=== PATIENT | male | born 1970 | race American Indian/Alaskan Native ===

== ENCOUNTER 2018-12-28 03:47 | Inpatient (IN) | payer MEDICAID, OTHER ==
[2018-12-28] MEDS ORDERED: Sodium Chloride 0.9% 1,000 ML IV ONE ×3 (03:51→06:49)
--- NOTE | 2018-12-28 04:24 | EDM.PDOC ---
ED HPI GENERAL MEDICAL PROBLEM - General Stated Complaint: HIGH BLOOD SUGAR Time Seen by Provider: 12/28/18 04:10 Source of Information: Reports: Patient, Family History Limitations: Reports: No Limitations - History of Present Illness INITIAL COMMENTS - FREE TEXT/NARRATIVE: This 48 yo male patient was brought to the ED by his due to several episodes of passing out. The patient reports he went to the [employer] at about 0100 today. While he was at the [employer], the patient reports he started to feel very lightheaded. The patient reports he "passed out" seven times before they could get him to the car. The patient reports he is diabetic and his blood sugar was reading "high" before going to the [facility]. The patient reports he had similar symptoms about 2-3 months ago, but his symptoms resolved on their own. The patient denies any drug or ETOH use. The patient reports he has been taking his medications as prescribed. Onset: Today Duration: Constant Location: Reports: Generalized Quality: Reports: Other Severity: Severe Improves with: Reports: None Worsens with: Reports: None Context: Reports: Other Associated Symptoms: Reports: Syncope Treatments MANAGER RENTAL: Reports: Insulin Other Treatments MANAGER RENTAL: Novalog and Lantus - Related Data Allergies Allergy/AdvReac Type Severity Reaction Status Date / Time No Known Allergies Allergy Verified 03/20/13 18:51 Home Meds: Home Meds Aspirin [Halfprin] 81 mg PO DAILY 03/20/13 [History] Insulin Detemir [Levemir] 50 units SQ BIDAC 03/20/13 [History] Lisinopril 10 mg PO DAILY 03/20/13 [History] metFORMIN [Glucophage] 1,000 mg PO BIDMEALS 03/20/13 [History] Simvastatin [Zocor] 10 mg PO DAILY 08/23/15 [History] Past Medical History Cardiovascular History: Reports: High Cholesterol, Hypertension Neurological History: Reports: Other (See Below) Other Neuro History: bells palsy Endocrine/Metabolic History: Reports: Diabetes, Type II - Past Surgical History Musculoskeletal Surgical History: Reports: Other (See Below) Social & Family History - Family History Family Medical History: Noncontributory - Living Situation & Occupation Living situation: Reports: , with Family Occupation: Employed ED ROS GENERAL - Review of Systems Review Of Systems: ROS reveals no pertinent complaints other than HPI. ED EXAM, GENERAL - Physical Exam Exam: See Below Exam Limited By: No Limitations General Appearance: Alert, WD/WN, Moderate Distress Eye Exam: Bilateral Eye: EOMI, Normal Inspection, PERRL Ears: Normal External Exam, Normal Canal, Hearing Grossly Normal, Normal TMs Nose: Normal Inspection, Normal Mucosa, No Blood Throat/Mouth: Normal Inspection, Normal Lips, Normal Teeth, Normal Gums, Normal Oropharynx, Normal Voice, No Airway Compromise Head: Atraumatic, Normocephalic Neck: Normal Inspection, Supple, Non-Tender, Full Range of Motion Respiratory/Chest: No Respiratory Distress, Lungs Clear, Normal Breath Sounds, No Accessory Muscle Use, Chest Non-Tender Cardiovascular: Normal Peripheral Pulses, Regular Rate, Rhythm, Systolic Murmur GI/Abdominal: Normal Bowel Sounds, Soft, Non-Tender, No Organomegaly, No Distention, No Abnormal Bruit, No Mass (Male) Exam: Deferred Rectal (Males) Exam: Deferred Back Exam: Normal Inspection, Full Range of Motion, NT Extremities: Normal Inspection, Normal Range of Motion, Non-Tender, Normal Capillary Refill, No Pedal Edema Neurological: Alert, Oriented, CN II-XII Intact, Normal Cognition, No Motor/ Sensory Deficits, Abnormal Gait (moved to the ED in a wheelchair due to weakness and syncope) Psychiatric: Normal Affect, Normal Mood Skin Exam: Cool, Pallor Lymphatic: No Adenopathy Course - Vital Signs Last Recorded V/S: Last Vital Signs Temp 35.8 C 12/28/18 03:55 Pulse 104 H 12/28/18 03:55 Resp 20 12/28/18 03:55 BP Pulse Ox 89 L 12/28/18 03:55 - Orders/Labs/Meds Orders: Active Orders 24 hr Category Date Time Status Admission Diagnosis [ADT] Stat ADT 12/28/18 06:39 Ordered Admission Status [Patient Status] [ADT] Routine ADT 12/28/18 06:39 Active EKG Documentation Completion [RC] URGENT Care 12/28/18 04:23 Active Glucose [Blood Glucose Check, Bedside] [RC] ONETIME Care 12/28/18 03:51 Active Chest 1V Frontal [CR] Urgent Exams 12/28/18 05:46 Taken Chest Abdomen Pelvis wo Cont [CT] Urgent Exams 12/28/18 06:38 Ordered CULTURE BLOOD [BC] Stat Lab 12/28/18 05:44 Received DRUG SCREEN URINE BIORAD [URCHEM] Stat Lab 12/28/18 03:50 Ordered UA RFX GERMAN AND CULT IF INDIC [URIN] Urgent Lab 12/28/18 03:50 Ordered Piperacillin/Tazobactam [Zosyn] 3.375 gm Med 12/28/18 06:39 Ordered Sodium Chloride 0.9% [Normal Saline] 100 ml IV ONETIME Sodium Chloride 0.9% [Normal Saline] 1,000 ml Med 12/28/18 06:23 Active IV .BOLUS Vancomycin 1.75 gm Med 12/28/18 06:39 Ordered Sodium Chloride 0.9% [Normal Saline] 500 ml IV ONETIME Medication Orders Sodium Chloride (Normal Saline) 1,000 mls @ 999 mls/hr IV .BOLUS ONE Stop: 12/28/18 07:23 Last Admin: 12/28/18 06:30 Dose: 999 mls/hr Piperacillin Sod/Tazobactam (Sod 3.375 gm/ Sodium Chloride) 100 mls @ 200 mls/ hr IV ONETIME ONE Stop: 12/28/18 07:08 Vancomycin HCl 1.75 gm/ Sodium (Chloride) 500 mls @ 334 mls/hr IV ONETIME ONE Stop: 12/28/18 08:08 Labs: Laboratory Tests 12/28/18 12/28/18 12/28/18 Range/Units 05:44 05:44 05:44 WBC 21.7 H (5.0-10.0) 10^3/uL RBC 5.86 (4.6-6.2) 10^6/uL Hgb 17.7 (14.0-18.0) g/dL Hct 48.6 (40.0-54.0) % MCV 82.9 D (80-100) fL MCH 30.2 (27.0-34.0) pg MCHC 36.4 H (33.0-35.0) g/dL Plt Count 457 H (150-450) 10^3/uL Neut % (Auto) 82.0 H (42.2-75.2) % Lymph % (Auto) 10.4 L (20.5-50.1) % Alger % (Auto) 7.3 (2-8) % Eos % (Auto) 0.1 L (1.0-3.0) % Baso % (Auto) 0.2 (0.0-1.0) % Add Manual Diff Yes Neutrophils % (Manual) 78 H (42-75) % Band Neutrophils % 7 % Lymphocytes % (Manual) 10 L (20-50) % Monocytes % (Manual) 5 (2-8) % Sodium (135-145) mmol/L Potassium (3.6-5.0) mmol/L Chloride (101-111) mmol/L Carbon Dioxide (21.0-31.0) mmol/L Anion Gap BUN (7-18) mg/dL Creatinine (0.6-1.3) mg/dL Est Cr Clr Drug Dosing mL/min Estimated GFR (MDRD) BUN/Creatinine Ratio Glucose (74-105) mg/dL Lactic Acid 4.7 H (0.5-2.2) mmol/L Calcium (8.4-10.2) mg/dl Total Bilirubin (0.2-1.0) mg/dL AST (10-42) IU/L ALT (10-60) IU/L Alkaline Phosphatase (42-121) IU/L Troponin I (0.00-0.08) ng/mL Total Protein (6.7-8.2) g/dl Albumin (3.2-5.5) g/dl Globulin Albumin/Globulin Ratio Ketones Negative 12/28/18 12/28/18 Range/Units 05:44 05:44 WBC (5.0-10.0) 10^3/uL RBC (4.6-6.2) 10^6/uL Hgb (14.0-18.0) g/dL Hct (40.0-54.0) % MCV (80-100) fL MCH (27.0-34.0) pg MCHC (33.0-35.0) g/dL Plt Count (150-450) 10^3/uL Neut % (Auto) (42.2-75.2) % Lymph % (Auto) (20.5-50.1) % Alger % (Auto) (2-8) % Eos % (Auto) (1.0-3.0) % Baso % (Auto) (0.0-1.0) % Add Manual Diff Neutrophils % (Manual) (42-75) % Band Neutrophils % % Lymphocytes % (Manual) (20-50) % Monocytes % (Manual) (2-8) % Sodium 129 L (135-145) mmol/L Potassium 3.5 L D (3.6-5.0) mmol/L Chloride 90 L (101-111) mmol/L Carbon Dioxide 20.0 L (21.0-31.0) mmol/L Anion Gap 22.5 BUN 26 H (7-18) mg/dL Creatinine 2.4 H D (0.6-1.3) mg/dL Est Cr Clr Drug Dosing 40.09 mL/min Estimated GFR (MDRD) 29 BUN/Creatinine Ratio 10.83 Glucose 338 H (74-105) mg/dL Lactic Acid (0.5-2.2) mmol/L Calcium 9.8 (8.4-10.2) mg/dl Total Bilirubin 1.0 (0.2-1.0) mg/dL AST 39 (10-42) IU/L ALT 51 (10-60) IU/L Alkaline Phosphatase 168 H (42-121) IU/L Troponin I 0.05 (0.00-0.08) ng/mL Total Protein 8.1 (6.7-8.2) g/dl Albumin 4.1 (3.2-5.5) g/dl Globulin 4.0 Albumin/Globulin Ratio 1.03 Ketones Meds: Medications Generic Name Dose Route Start Last Admin Trade Name Freq PRN Reason Stop Dose Admin Sodium Chloride 1,000 mls @ 999 mls/hr 12/28/18 06:23 12/28/18 06:30 Normal Saline IV 12/28/18 07:23 999 mls/hr .BOLUS ONE Administration Piperacillin Sod/Tazobactam 100 mls @ 200 mls/hr 12/28/18 06:39 Sod 3.375 gm/ Sodium Chloride IV 12/28/18 07:08 ONETIME ONE Vancomycin HCl 1.75 gm/ Sodium 500 mls @ 334 mls/hr 12/28/18 06:39 Chloride IV 12/28/18 08:08 ONETIME ONE Discontinued Medications Generic Name Dose Route Start Last Admin Trade Name Freq PRN Reason Stop Dose Admin Sodium Chloride 1,000 mls @ 999 mls/hr 12/28/18 03:51 12/28/18 06:15 Normal Saline IV 12/28/18 04:51 999 mls/hr .BOLUS ONE Administration - Re-Assessments/Exams Free Text/Narrative Re-Assessment/Exam: 12/28/18 05:58 Surgery (Dr. Bullock) came to the ED to place a central line for blood draw and fluid administration. Departure - Departure Time of Disposition: 06:45 Disposition: Admitted As Inpatient 66 Condition: Serious Clinical Impression: Sepsis Qualifiers: Sepsis type: sepsis due to unspecified organism Sepsis acute organ dysfunction status: with acute organ dysfunction Severe sepsis acute organ dysfunction type : acute renal failure Acute renal failure type: unspecified Severe sepsis shock status: with septic shock Qualified Code(s): A41.9 - Sepsis, unspecified organism; R65.21 - Severe sepsis with septic shock; N17.9 - Acute kidney failure , unspecified - Discharge Information *PRESCRIPTION DRUG MONITORING PROGRAM REVIEWED*: Not Applicable *COPY OF PRESCRIPTION DRUG MONITORING REPORT IN PATIENT DIANA: Not Applicable Care Plan Goals: Discussed the patient's history, examination, lab, EKG and x-ray results with Dr. Dinh. Dr. Dinh accepted the patient for continued evaluation and treatment as an inpatient at [facility]. Prior to admission, the patient was started on IV Vancomycin and IV Zosyn. The patient was also given 2 liters of IV fluids. The patient had a CT of his chest, abdomen and pelvis prior to moving the patient to the floor. - My Orders Last 24 Hours: My Active Orders 12/28/18 03:50 DRUG SCREEN URINE BIORAD [URCHEM] Stat UA RFX GERMAN AND CULT IF INDIC [URIN] Urgent 12/28/18 03:51 Glucose [Blood Glucose Check, Bedside] [RC] ONETIME 12/28/18 04:23 EKG Documentation Completion [RC] URGENT 12/28/18 05:44 CULTURE BLOOD [BC] Stat 12/28/18 05:46 Chest 1V Frontal [CR] Urgent 12/28/18 06:23 Sodium Chloride 0.9% [Normal Saline] 1,000 ml IV .BOLUS 12/28/18 06:38 Chest Abdomen Pelvis wo Cont [CT] Urgent 12/28/18 06:39 Admission Diagnosis [ADT] Stat Admission Status [Patient Status] [ADT] Routine Piperacillin/Tazobactam [Zosyn] 3.375 gm Sodium Chloride 0.9% [Normal Saline] 100 ml IV ONETIME Vancomycin 1.75 gm Sodium Chloride 0.9% [Normal Saline] 500 ml IV ONETIME - Assessment/Plan Last 24 Hours: My Active Orders 12/28/18 03:50 DRUG SCREEN URINE BIORAD [URCHEM] Stat UA RFX GERMAN AND CULT IF INDIC [URIN] Urgent 12/28/18 03:51 Glucose [Blood Glucose Check, Bedside] [RC] ONETIME 12/28/18 04:23 EKG Documentation Completion [RC] URGENT 12/28/18 05:44 CULTURE BLOOD [BC] Stat 12/28/18 05:46 Chest 1V Frontal [CR] Urgent 12/28/18 06:23 Sodium Chloride 0.9% [Normal Saline] 1,000 ml IV .BOLUS 12/28/18 06:38 Chest Abdomen Pelvis wo Cont [CT] Urgent 12/28/18 06:39 Admission Diagnosis [ADT] Stat Admission Status [Patient Status] [ADT] Routine Piperacillin/Tazobactam [Zosyn] 3.375 gm Sodium Chloride 0.9% [Normal Saline] 100 ml IV ONETIME Vancomycin 1.75 gm Sodium Chloride 0.9% [Normal Saline] 500 ml IV ONETIME
[2018-12-28 06:15] LABS: ANION GAP 22.5
[2018-12-28] MEDS ORDERED: Vancomycin 1.75 GM in Sodium Chloride 0.9% 500 ML IV ONE (06:39)
[2018-12-28] MEDS ORDERED: Piperacillin/Tazobactam 3.375 GM in Sodium Chloride 0.9% 100 ML IV ONE (06:39)
--- NOTE | 2018-12-28 08:27 | PCM.HP ---
H&P History of Present Illness - General Date of Service: 12/28/18 Admit Problem/Dx: Admission Diagnosis/Problem Admission Diagnosis/Problem Sepsis Source of Information: Patient History Limitations: Reports: No Limitations - History of Present Illness Initial Comments - Free Text/Narative: 48 yo M with PMH of DM2, obesity, hypertension, HLD who p/w recurrent syncope. History is limited as patient cannot recall events from last night clearly [place]. Friends brought him to the ER cos he was passing out repeatedly, up to 7 times. On arrival in the ER, he was severely dehydrated, hypotensive, tachycardic, peripheral veins could not be cannulated and a central line had to be placed for hydration. He recieved IV fluids and broad spectrum abx. VS improved with IV fluid hydration I saw and examined the patient on the floor He feels much better He has no symptoms at this time. No chest pain, no SOB, no abdominal pain, no urinary symptoms, no fever Admits to hx of IVDU No hx of alcohol intake or cigarette smoking - Related Data Allergies/Adverse Reactions: Allergies Allergy/AdvReac Type Severity Reaction Status Date / Time No Known Allergies Allergy Verified 03/20/13 18:51 Home Medications: Home Meds Aspirin [Halfprin] 81 mg PO DAILY 03/20/13 [History] Insulin Detemir [Levemir] 50 units SQ BIDAC 03/20/13 [History] Lisinopril 10 mg PO DAILY 03/20/13 [History] metFORMIN [Glucophage] 1,000 mg PO BIDMEALS 03/20/13 [History] Simvastatin [Zocor] 10 mg PO DAILY 08/23/15 [History] Past Medical History - Past Health History Medical/Surgical History: Denies Medical/Surgical History HEENT History: Reports: Cataract Cardiovascular History: Reports: High Cholesterol, Hypertension Respiratory History: Reports: None Gastrointestinal History: Reports: None Genitourinary History: Reports: Other (See Below) Other Genitourinary History: Hernia Musculoskeletal History: Reports: Back Pain, Chronic Neurological History: Reports: Other (See Below) Other Neuro History: [place] Endocrine/Metabolic History: Reports: Diabetes, Type II Hematologic History: Reports: None Oncologic (Cancer) History: Reports: None Dermatologic History: Reports: Other (See Below) Other Dermatologic History: Sores to L foot, L stout, and R stout - Infectious Disease History Infectious Disease History: Reports: Chicken Pox - Past Surgical History Head Surgeries/Procedures: Reports: None Social & Family History - Family History Family Medical History: Noncontributory - Tobacco Use Smoking Status *Q: Never Smoker Second Hand Smoke Exposure: Yes - Caffeine Use Caffeine Use: Reports: Coffee, Tea - Recreational Drug Use Recreational Drug Use: Yes Drug Use in Last 12 Months: Yes Recreational Drug Type: Reports: Marijuana/Hashish, Methamphetamine Recreational Drug Use Frequency: Monthly - Living Situation & Occupation Living situation: Reports: , with Family Occupation: Employed H&P Review of Systems - Review of Systems: Review Of Systems: ROS reveals no pertinent complaints other than HPI. General: Reports: No Symptoms HEENT: Reports: No Symptoms Pulmonary: Reports: No Symptoms Cardiovascular: Reports: Syncope Gastrointestinal: Reports: No Symptoms Genitourinary: Reports: No Symptoms Musculoskeletal: Reports: No Symptoms Skin: Reports: No Symptoms Psychiatric: Reports: No Symptoms Neurological: Reports: No Symptoms Exam - Exam Exam: See Below - Vital Signs Vital Signs: Last Vital Signs Temp 35.8 C 12/28/18 03:55 Pulse 94 12/28/18 07:04 Resp 18 12/28/18 07:04 BP 91/58 L 12/28/18 07:04 Pulse Ox 98 12/28/18 07:04 Weight: 99.065 kg - Exam General: Alert, Oriented HEENT: Conjunctiva Clear, EACs Clear, EOMI Neck: Supple, Trachea Midline Lungs: Clear to Auscultation, Normal Respiratory Effort Cardiovascular: Regular Rate, Regular Rhythm GI/Abdominal Exam: Normal Bowel Sounds, Soft, Non-Tender, No Organomegaly, No Distention Extremities: Normal Inspection, Normal Range of Motion, Non-Tender, No Pedal Edema Skin: Other (chronic wounds with scabs on lower and upper ext bilaterally) - Patient Data Lab Results Last 24 hrs: Laboratory Results - last 24 hr 12/28/18 12/28/18 12/28/18 Range/Units 05:44 05:44 05:44 WBC 21.7 H (5.0-10.0) 10^3/uL RBC 5.86 (4.6-6.2) 10^6/uL Hgb 17.7 (14.0-18.0) g/dL Hct 48.6 (40.0-54.0) % MCV 82.9 D (80-100) fL MCH 30.2 (27.0-34.0) pg MCHC 36.4 H (33.0-35.0) g/dL Plt Count 457 H (150-450) 10^3/uL Neut % (Auto) 82.0 H (42.2-75.2) % Lymph % (Auto) 10.4 L (20.5-50.1) % Saline % (Auto) 7.3 (2-8) % Eos % (Auto) 0.1 L (1.0-3.0) % Baso % (Auto) 0.2 (0.0-1.0) % Add Manual Diff Yes Neutrophils % (Manual) 78 H (42-75) % Band Neutrophils % 7 % Lymphocytes % (Manual) 10 L (20-50) % Monocytes % (Manual) 5 (2-8) % Sodium (135-145) mmol/L Potassium (3.6-5.0) mmol/L Chloride (101-111) mmol/L Carbon Dioxide (21.0-31.0) mmol/L Anion Gap BUN (7-18) mg/dL Creatinine (0.6-1.3) mg/dL Est Cr Clr Drug Dosing mL/min Estimated GFR (MDRD) BUN/Creatinine Ratio Glucose (74-105) mg/dL POC Glucose (70-105) mg/dl Lactic Acid 4.7 H (0.5-2.2) mmol/L Calcium (8.4-10.2) mg/dl Total Bilirubin (0.2-1.0) mg/dL AST (10-42) IU/L ALT (10-60) IU/L Alkaline Phosphatase (42-121) IU/L Troponin I (0.00-0.08) ng/mL Total Protein (6.7-8.2) g/dl Albumin (3.2-5.5) g/dl Globulin Albumin/Globulin Ratio Ketones Negative 12/28/18 12/28/18 12/28/18 Range/Units 05:44 05:44 08:16 WBC (5.0-10.0) 10^3/uL RBC (4.6-6.2) 10^6/uL Hgb (14.0-18.0) g/dL Hct (40.0-54.0) % MCV (80-100) fL MCH (27.0-34.0) pg MCHC (33.0-35.0) g/dL Plt Count (150-450) 10^3/uL Neut % (Auto) (42.2-75.2) % Lymph % (Auto) (20.5-50.1) % Saline % (Auto) (2-8) % Eos % (Auto) (1.0-3.0) % Baso % (Auto) (0.0-1.0) % Add Manual Diff Neutrophils % (Manual) (42-75) % Band Neutrophils % % Lymphocytes % (Manual) (20-50) % Monocytes % (Manual) (2-8) % Sodium 129 L (135-145) mmol/L Potassium 3.5 L D (3.6-5.0) mmol/L Chloride 90 L (101-111) mmol/L Carbon Dioxide 20.0 L (21.0-31.0) mmol/L Anion Gap 22.5 BUN 26 H (7-18) mg/dL Creatinine 2.4 H D (0.6-1.3) mg/dL Est Cr Clr Drug Dosing 40.09 mL/min Estimated GFR (MDRD) 29 BUN/Creatinine Ratio 10.83 Glucose 338 H (74-105) mg/dL POC Glucose 263 H (70-105) mg/dl Lactic Acid (0.5-2.2) mmol/L Calcium 9.8 (8.4-10.2) mg/dl Total Bilirubin 1.0 (0.2-1.0) mg/dL AST 39 (10-42) IU/L ALT 51 (10-60) IU/L Alkaline Phosphatase 168 H (42-121) IU/L Troponin I 0.05 (0.00-0.08) ng/mL Total Protein 8.1 (6.7-8.2) g/dl Albumin 4.1 (3.2-5.5) g/dl Globulin 4.0 Albumin/Globulin Ratio 1.03 Ketones Result Diagrams: 12/28/18 05:44 12/28/18 05:44 Problem List Initiated/Reviewed/Updated: Yes Orders Last 24hrs: Active Orders 24 hr Category Date Time Status Admission Diagnosis [ADT] Stat ADT 12/28/18 06:39 Ordered Admission Status [Patient Status] [ADT] Routine ADT 12/28/18 06:39 Active Accu Check [Blood Glucose Check, Bedside] [RC] Care 12/28/18 08:11 Active QIDACANDBED Ambulate [RC] ASDIRECTED Care 12/28/18 08:13 Active EKG Documentation Completion [RC] URGENT Care 12/28/18 04:23 Active Glucose [Blood Glucose Check, Bedside] [RC] ONETIME Care 12/28/18 03:51 Active Height and Weight [RC] DAILY Care 12/28/18 08:13 Active Oxygen Therapy [RC] PRN Care 12/28/18 08:13 Active Up With Assistance [RC] ASDIRECTED Care 12/28/18 08:13 Active VTE/DVT Education [RC] PER UNIT ROUTINE Care 12/28/18 08:13 Active Vital Signs [RC] Q4H Care 12/28/18 08:13 Active Consistent Carbohydrate Diet [DIET] Diet 12/28/18 Lunch Active Chest Abdomen Pelvis wo Cont [CT] Urgent Exams 12/28/18 06:38 Ordered BASIC METABOLIC PANEL,BMP [CHEM] AM Lab 12/29/18 05:11 Ordered BASIC METABOLIC PANEL,BMP [CHEM] AM Lab 12/30/18 05:11 Ordered BASIC METABOLIC PANEL,BMP [CHEM] AM Lab 12/31/18 05:11 Ordered CBC W/O DIFF,HEMOGRAM [HEME] AM Lab 12/29/18 05:11 Ordered CBC W/O DIFF,HEMOGRAM [HEME] AM Lab 12/30/18 05:11 Ordered CBC W/O DIFF,HEMOGRAM [HEME] AM Lab 12/31/18 05:11 Ordered CULTURE BLOOD [BC] Stat Lab 12/28/18 05:44 Received DRUG SCREEN URINE BIORAD [URCHEM] Stat Lab 12/28/18 03:50 Ordered MAGNESIUM [CHEM] AM Lab 12/29/18 05:11 Ordered MAGNESIUM [CHEM] AM Lab 12/30/18 05:11 Ordered MAGNESIUM [CHEM] AM Lab 12/31/18 05:11 Ordered PHOSPHORUS [CHEM] AM Lab 12/29/18 05:11 Ordered PHOSPHORUS [CHEM] AM Lab 12/30/18 05:11 Ordered PHOSPHORUS [CHEM] AM Lab 12/31/18 05:11 Ordered UA RFX GERMAN AND CULT IF INDIC [URIN] Urgent Lab 12/28/18 03:50 Ordered UA W/MICROSCOPIC [URIN] Routine Lab 12/28/18 08:09 Ordered Aspirin [Halfprin] Med 12/28/18 09:00 Active 81 mg PO DAILY Heparin Sodium Med 12/28/18 14:00 Active 5,000 units SUBCUT Q8HR Insulin Detemir Med 12/28/18 16:00 Ordered 50 units SQ BIDAC Insulin Lispro [HumaLOG] Med 12/28/18 11:00 Ordered See Protocol SUBCUT QIDACANDBED Simvastatin [Zocor] Med 12/28/18 09:00 Active 10 mg PO DAILY Sodium Chloride 0.9% [Normal Saline] 1,000 ml Med 12/28/18 06:49 Active IV .BOLUS Sodium Chloride 0.9% [Normal Saline] 1,000 ml Med 12/28/18 08:15 Active IV ASDIRECTED Resuscitation Status Routine Resus Stat 12/28/18 08:13 Ordered Medication Orders Aspirin (Halfprin) 81 mg PO DAILY SUSY Heparin Sodium (Porcine) (Heparin Sodium) 5,000 units SUBCUT Q8HR SUSY Sodium Chloride (Normal Saline) 1,000 mls @ 250 mls/hr IV .BOLUS ONE Stop: 12/28/18 10:48 Last Admin: 12/28/18 06:45 Dose: 250 mls/hr Sodium Chloride (Normal Saline) 1,000 mls @ 125 mls/hr IV ASDIRECTED SUSY Insulin Human Lispro (Humalog) 0 unit SUBCUT QIDACANDBED SUSY; Protocol Non-Formulary Medication (Insulin Detemir) 50 units SQ BIDAC SUSY Simvastatin (Zocor) 10 mg PO DAILY COUNT INCLUDES THE [facility] Assessment/Plan Comment:: Hypotension, Tachycardia, Leucocytosis SIRS +ve, no infection source Likely 2/2 severe dehydration f/u blood cx x 2 CT abd/pelvis for source of sepsis IV fluid hydration Hold abx for now Syncope likely orthostatic 2/2 hypotension improved now, no lightheadedness monitor on Telemetry IV fluid hydration CHARLY likely 2/2 severe dehydration Prerenal CHARLY monitor BMP daily Type 2 DM ISS Accuchecks continue home insulin regimen HTN Hold home BP meds for now DVT ppx SC heparin Code status FC
[2018-12-28] MEDS: Simvastatin 10 MG Tab PO SCH (09:40)
[2018-12-28] MEDS: Insulin Lispro 100 Units/ML 3 ML Vial SUBCUT SCH ×4 (09:41→21:14)
[2018-12-28] MEDS ORDERED: Sodium Chloride 0.9% 10 ML Syringe FLUSH PRN (09:41)
[2018-12-28] MEDS: Aspirin 81 MG Tab.EC PO SCH (09:41)
[2018-12-28] MEDS ORDERED: Acetaminophen 325 MG Tab PO PRN (09:49)
[2018-12-28] MEDS ORDERED: Insulin NPH HUM/REG Insulin HM 100 UNIT/ML 3 ML Vial SQ ONE (11:51)
[2018-12-28] MEDS ORDERED: Insulin Lispro 100 Units/ML 3 ML Vial SUBCUT ONE (11:52)
[2018-12-28] MEDS: Piperacillin/Tazobactam 3.375 GM in Sodium Chloride 0.9% 100 ML IV SCH ×2 (12:47→17:46)
[2018-12-28] MEDS: Sodium Chloride 0.9% 1,000 ML IV SCH ×2 (13:58→22:43)
--- NOTE | 2018-12-28 14:19 | OR ---
DATE: 12/28/2018 PREOPERATIVE DIAGNOSIS: Need for IV access. POSTOPERATIVE DIAGNOSIS: Need for IV access. PROCEDURE: Placement of left subclavian triple-lumen central line. ANESTHESIA: Local. SPECIMEN: None. INDICATION FOR PROCEDURE: This 48-year-old male presents to the emergency room. Multiple attempts at peripheral IVs by both the ER staff and Anesthesia were unsuccessful. Surgical assistance is requested for central line. DESCRIPTION OF PROCEDURE: After adequate preparation, an incision was made underneath the left clavicle. A triple-lumen catheter was then placed without difficulty. This was done by accessing the subclavian vein, and over a guidewire, a triple-lumen catheter was placed. This was confirmed for adequate placement by chest x-ray which shows the tip in the superior vena cava, right atrium area. No evidence of pneumothorax. The line was secured in place using silk sutures. [facility] /[id number]
[2018-12-28] MEDS: Heparin Sodium 5,000 Units/ML Vial SUBCUT SCH ×2 (14:45→21:17)
[2018-12-28] MEDS ORDERED: Insulin Glarg,Human.Rec.Analog 100 UNIT/ML ML SUBCUT SCH (16:00)
[2018-12-29] MEDS: Piperacillin/Tazobactam 3.375 GM in Sodium Chloride 0.9% 100 ML IV SCH ×3 (00:11→12:50)
[2018-12-29] MEDS ORDERED: oxyCODONE 5 MG Tab PO ONE (03:41)
[2018-12-29] MEDS: Heparin Sodium 5,000 Units/ML Vial SUBCUT SCH (06:00)
[2018-12-29] MEDS: Sodium Chloride 0.9% 1,000 ML IV SCH (06:56)
[2018-12-29 07:11] LABS: ANION GAP 9.8; CHLORIDE,CL 105 mmol/L (101-111); SODIUM,NA 136 mmol/L (135-145)
[2018-12-29] MEDS ORDERED: Insulin Glarg,Human.Rec.Analog 100 UNIT/ML ML SUBCUT SCH (09:00)
[2018-12-29 09:06] VITALS: BP 107/64; PULSE 91
[2018-12-29] MEDS: Insulin Lispro 100 Units/ML 3 ML Vial SUBCUT SCH ×2 (09:06→12:49)
[2018-12-29] MEDS: Aspirin 81 MG Tab.EC PO SCH (09:07)
[2018-12-29] MEDS: Simvastatin 10 MG Tab PO SCH (09:07)
[2018-12-29] MEDS ORDERED: Tamsulosin 0.4 MG Cap.ER PO SCH (10:15)
[2018-12-29] MEDS ORDERED: Finasteride 5 MG Tab PO SCH (10:15)
--- NOTE | 2018-12-29 11:59 | PCM.DCSUM1 ---
Discharge Summary - Hospital Course Free Text/Narrative:: 48 yo M with PMH of DM2, obesity, hypertension, HLD who p/w recurrent syncope. [place] the [place] with his friends. Friends brought him to the ER cos he was passing out repeatedly, up to 7 times. On arrival in the ER, he was severely dehydrated, hypotensive, tachycardic, peripheral veins could not be cannulated and a central line had to be placed for hydration. He received IV fluids and broad spectrum abx. VS improved with IV fluid hydration I saw and examined the patient on the floor He feels much better. He has no symptoms at this time. No chest pain, no SOB, no abdominal pain, no urinary symptoms, no fever Admits to hx of IVDU Labwork improved, WBC normalized, lactic acid normalized. Cx were negative CT chest abd pelvis: no source of sepsis, distended bladder with mild hydroureteronephrosis Straight cath yielded 800 cc after patient had voided 350 mL. Patient likely has underlying BPH Needs Urology follow up, will be arranged by PCP. PSA check by PCP. Started on flomax, proscar empirically Diagnosis: Stroke: No Modified Stanislaus Scale: No Symptoms at All Modified Stanislaus Scale Score: 0 - Discharge Data Discharge Date: 12/29/18 Discharge Disposition: Home, Self-Care 01 Condition: Good - Referral to Home Health Primary Care Physician: PCP Unobtainable - Patient Instructions Diet: Diabetic Diet Activity: As Tolerated Showering/Bathing: May Shower Other/Special Instructions: Counseled patient to stay hydrated. Stop IVDU - Discharge Plan *PRESCRIPTION DRUG MONITORING PROGRAM REVIEWED*: Not Applicable *COPY OF PRESCRIPTION DRUG MONITORING REPORT IN PATIENT DIANA: Not Applicable Prescriptions/Med Rec: Finasteride [Proscar] 5 mg PO DAILY 30 Days #30 tablet Tamsulosin [Flomax] 0.4 mg PO DAILY 30 Days #30 cap.er Home Medications: Home Meds Aspirin [Halfprin] 81 mg PO DAILY 03/20/13 [History] Insulin Detemir [Levemir] 50 units SQ BIDAC 03/20/13 [History] Lisinopril 10 mg PO DAILY 03/20/13 [History] metFORMIN [Glucophage] 1,000 mg PO BIDMEALS 03/20/13 [History] Simvastatin [Zocor] 10 mg PO DAILY 08/23/15 [History] Finasteride [Proscar] 5 mg PO DAILY 30 Days #30 tablet 12/29/18 [Rx] Tamsulosin [Flomax] 0.4 mg PO DAILY 30 Days #30 cap.er 12/29/18 [Rx] Patient Handouts: Diabetes Mellitus and Foot Care, Finasteride (Proscar) tablets, Sepsis, Adult, Tamsulosin capsules Referrals: Jake Mitchell MD [Ordering Only Provider] - - Discharge Summary/Plan Comment DC Time >30 min.: Yes - General Info Date of Service: 12/29/18 Admission Dx/Problem (Free Text: Admission Diagnosis/Problem Admission Diagnosis/Problem Sepsis Subjective Update: NO symptoms - Review of Systems General: Reports: No Symptoms HEENT: Reports: No Symptoms Pulmonary: Reports: No Symptoms Cardiovascular: Reports: No Symptoms Gastrointestinal: Reports: No Symptoms Genitourinary: Reports: No Symptoms Musculoskeletal: Reports: No Symptoms Skin: Reports: No Symptoms - Patient Data Vitals - Most Recent: Last Vital Signs Temp 36.8 C 12/29/18 08:00 Pulse 91 12/29/18 08:00 Resp 16 12/29/18 08:00 BP 107/64 12/29/18 08:00 Pulse Ox 100 12/29/18 08:00 Weight - Most Recent: 103.147 kg I&O - Last 24 hours: Intake & Output 12/28/18 12/29/18 12/29/18 22:59 06:59 14:59 Intake Total 260 2941 360 Output Total 880 Balance -620 2941 360 Lab Results - Last 24 hrs: Laboratory Results - last 24 hr 12/28/18 12/28/18 12/28/18 Range/Units 04:11 05:44 12:39 WBC (5.0-10.0) 10^3/uL RBC (4.6-6.2) 10^6/uL Hgb (14.0-18.0) g/dL Hct (40.0-54.0) % MCV (80-100) fL MCH (27.0-34.0) pg MCHC (33.0-35.0) g/dL Plt Count (150-450) 10^3/uL Sodium (135-145) mmol/L Potassium (3.6-5.0) mmol/L Chloride (101-111) mmol/L Carbon Dioxide (21.0-31.0) mmol/L Anion Gap BUN (7-18) mg/dL Creatinine (0.6-1.3) mg/dL Est Cr Clr Drug Dosing mL/min Estimated GFR (MDRD) Glucose (74-105) mg/dL POC Glucose > 500 H* (70-105) mg/dl Lactic Acid 2.2 (0.5-2.2) mmol/L Calcium (8.4-10.2) mg/dl Phosphorus (2.5-4.6) mg/dL Magnesium (1.8-2.5) mg/dL Troponin I 0.05 (0.00-0.08) ng/mL Urine Color (YELLOW) Urine Appearance (CLEAR) Urine pH (5.0-9.0) Ur Specific [place] (1.005-1.030) Urine Protein (NEGATIVE) Urine Glucose (UA) (NEGATIVE) Urine Ketones (NEGATIVE) Urine Occult Blood (NEGATIVE) Urine Nitrite (NEGATIVE) Urine Bilirubin (NEGATIVE) Urine Urobilinogen (0.2-1.0) mg/dL Ur Leukocyte Esterase (NEGATIVE) Urine RBC /HPF Urine WBC (0-5/HPF) /HPF Ur Epithelial Cells (NOT SEEN) /HPF Amorphous Sediment (NOT SEEN) /HPF Urine Bacteria (0-FEW/HPF) /HPF Urine Opiates Screen (NEGATIVE) Ur Oxycodone Screen (NEGATIVE) Urine Methadone Screen (NEGATIVE) Ur Barbiturates Screen (NEGATIVE) U Tricyclic Antidepress (NEGATIVE) Ur Phencyclidine Scrn (NEGATIVE) Ur Amphetamine Screen (NEGATIVE) U Methamphetamines Scrn (NEGATIVE) Urine MDMA Screen (NEGATIVE) U Benzodiazepines Scrn (NEGATIVE) Urine Cocaine Screen (NEGATIVE) U Marijuana (THC) Screen (NEGATIVE) 12/28/18 12/28/18 12/28/18 Range/Units 14:01 14:01 16:51 WBC (5.0-10.0) 10^3/uL RBC (4.6-6.2) 10^6/uL Hgb (14.0-18.0) g/dL Hct (40.0-54.0) % MCV (80-100) fL MCH (27.0-34.0) pg MCHC (33.0-35.0) g/dL Plt Count (150-450) 10^3/uL Sodium (135-145) mmol/L Potassium (3.6-5.0) mmol/L Chloride (101-111) mmol/L Carbon Dioxide (21.0-31.0) mmol/L Anion Gap BUN (7-18) mg/dL Creatinine (0.6-1.3) mg/dL Est Cr Clr Drug Dosing mL/min Estimated GFR (MDRD) Glucose (74-105) mg/dL POC Glucose 269 H (70-105) mg/dl Lactic Acid (0.5-2.2) mmol/L Calcium (8.4-10.2) mg/dl Phosphorus (2.5-4.6) mg/dL Magnesium (1.8-2.5) mg/dL Troponin I (0.00-0.08) ng/mL Urine Color Yellow (YELLOW) Urine Appearance Clear (CLEAR) Urine pH 5.5 (5.0-9.0) Ur Specific [place] <= 1.005 (1.005-1.030) Urine Protein Trace H (NEGATIVE) Urine Glucose (UA) 500 H (NEGATIVE) Urine Ketones Negative (NEGATIVE) Urine Occult Blood Negative (NEGATIVE) Urine Nitrite Negative (NEGATIVE) Urine Bilirubin Negative (NEGATIVE) Urine Urobilinogen 0.2 (0.2-1.0) mg/dL Ur Leukocyte Esterase Negative (NEGATIVE) Urine RBC 0-5 /HPF Urine WBC 0-5 (0-5/HPF) /HPF Ur Epithelial Cells Occasional (NOT SEEN) /HPF Amorphous Sediment Few (NOT SEEN) /HPF Urine Bacteria Rare (0-FEW/HPF) /HPF Urine Opiates Screen Negative (NEGATIVE) Ur Oxycodone Screen Negative (NEGATIVE) Urine Methadone Screen Negative (NEGATIVE) Ur Barbiturates Screen Negative (NEGATIVE) U Tricyclic Antidepress Negative (NEGATIVE) Ur Phencyclidine Scrn Negative (NEGATIVE) Ur Amphetamine Screen Negative (NEGATIVE) U Methamphetamines Scrn Positive H (NEGATIVE) Urine MDMA Screen Negative (NEGATIVE) U Benzodiazepines Scrn Negative (NEGATIVE) Urine Cocaine Screen Negative (NEGATIVE) U Marijuana (THC) Screen Negative (NEGATIVE) 12/28/18 12/29/18 12/29/18 Range/Units 20:59 06:05 06:05 WBC 9.6 (5.0-10.0) 10^3/uL RBC 4.36 L (4.6-6.2) 10^6/uL Hgb 13.1 L D (14.0-18.0) g/dL Hct 38.4 L (40.0-54.0) % MCV 88.1 D (80-100) fL MCH 30.0 (27.0-34.0) pg MCHC 34.1 (33.0-35.0) g/dL Plt Count 323 D (150-450) 10^3/uL Sodium 136 (135-145) mmol/L Potassium 3.8 (3.6-5.0) mmol/L Chloride 105 D (101-111) mmol/L Carbon Dioxide 25.0 (21.0-31.0) mmol/L Anion Gap 9.8 BUN 17 (7-18) mg/dL Creatinine 1.0 D (0.6-1.3) mg/dL Est Cr Clr Drug Dosing 96.22 mL/min Estimated GFR (MDRD) > 60 Glucose 287 H (74-105) mg/dL POC Glucose 205 H (70-105) mg/dl Lactic Acid (0.5-2.2) mmol/L Calcium 8.0 L D (8.4-10.2) mg/dl Phosphorus 3.0 (2.5-4.6) mg/dL Magnesium 1.8 (1.8-2.5) mg/dL Troponin I (0.00-0.08) ng/mL Urine Color (YELLOW) Urine Appearance (CLEAR) Urine pH (5.0-9.0) Ur Specific [place] (1.005-1.030) Urine Protein (NEGATIVE) Urine Glucose (UA) (NEGATIVE) Urine Ketones (NEGATIVE) Urine Occult Blood (NEGATIVE) Urine Nitrite (NEGATIVE) Urine Bilirubin (NEGATIVE) Urine Urobilinogen (0.2-1.0) mg/dL Ur Leukocyte Esterase (NEGATIVE) Urine RBC /HPF Urine WBC (0-5/HPF) /HPF Ur Epithelial Cells (NOT SEEN) /HPF Amorphous Sediment (NOT SEEN) /HPF Urine Bacteria (0-FEW/HPF) /HPF Urine Opiates Screen (NEGATIVE) Ur Oxycodone Screen (NEGATIVE) Urine Methadone Screen (NEGATIVE) Ur Barbiturates Screen (NEGATIVE) U Tricyclic Antidepress (NEGATIVE) Ur Phencyclidine Scrn (NEGATIVE) Ur Amphetamine Screen (NEGATIVE) U Methamphetamines Scrn (NEGATIVE) Urine MDMA Screen (NEGATIVE) U Benzodiazepines Scrn (NEGATIVE) Urine Cocaine Screen (NEGATIVE) U Marijuana (THC) Screen (NEGATIVE) 12/29/18 12/29/18 Range/Units 08:00 11:39 WBC (5.0-10.0) 10^3/uL RBC (4.6-6.2) 10^6/uL Hgb (14.0-18.0) g/dL Hct (40.0-54.0) % MCV (80-100) fL MCH (27.0-34.0) pg MCHC (33.0-35.0) g/dL Plt Count (150-450) 10^3/uL Sodium (135-145) mmol/L Potassium (3.6-5.0) mmol/L Chloride (101-111) mmol/L Carbon Dioxide (21.0-31.0) mmol/L Anion Gap BUN (7-18) mg/dL Creatinine (0.6-1.3) mg/dL Est Cr Clr Drug Dosing mL/min Estimated GFR (MDRD) Glucose (74-105) mg/dL POC Glucose 241 H 214 H (70-105) mg/dl Lactic Acid (0.5-2.2) mmol/L Calcium (8.4-10.2) mg/dl Phosphorus (2.5-4.6) mg/dL Magnesium (1.8-2.5) mg/dL Troponin I (0.00-0.08) ng/mL Urine Color (YELLOW) Urine Appearance (CLEAR) Urine pH (5.0-9.0) Ur Specific [place] (1.005-1.030) Urine Protein (NEGATIVE) Urine Glucose (UA) (NEGATIVE) Urine Ketones (NEGATIVE) Urine Occult Blood (NEGATIVE) Urine Nitrite (NEGATIVE) Urine Bilirubin (NEGATIVE) Urine Urobilinogen (0.2-1.0) mg/dL Ur Leukocyte Esterase (NEGATIVE) Urine RBC /HPF Urine WBC (0-5/HPF) /HPF Ur Epithelial Cells (NOT SEEN) /HPF Amorphous Sediment (NOT SEEN) /HPF Urine Bacteria (0-FEW/HPF) /HPF Urine Opiates Screen (NEGATIVE) Ur Oxycodone Screen (NEGATIVE) Urine Methadone Screen (NEGATIVE) Ur Barbiturates Screen (NEGATIVE) U Tricyclic Antidepress (NEGATIVE) Ur Phencyclidine Scrn (NEGATIVE) Ur Amphetamine Screen (NEGATIVE) U Methamphetamines Scrn (NEGATIVE) Urine MDMA Screen (NEGATIVE) U Benzodiazepines Scrn (NEGATIVE) Urine Cocaine Screen (NEGATIVE) U Marijuana (THC) Screen (NEGATIVE) GERMAN Results - Last 24 hrs: Microbiology 12/28/18 05:44 Aerobic Blood Culture - Preliminary Blood Anaerobic Blood Culture - Preliminary NO GROWTH AFTER 1 DAY Med Orders - Current: Current Medications Acetaminophen (Tylenol) 650 mg PO Q4H PRN PRN Reason: Pain Last Admin: 12/28/18 11:27 Dose: 650 mg Aspirin (Halfprin) 81 mg PO DAILY [facility] Last Admin: 12/29/18 09:07 Dose: 81 mg Finasteride (Proscar) 5 mg PO DAILY [facility] Heparin Sodium (Porcine) (Heparin Sodium) 5,000 units SUBCUT Q8HR [facility] Last Admin: 12/29/18 06:00 Dose: 5,000 units Sodium Chloride (Normal Saline) 1,000 mls @ 125 mls/hr IV ASDIRECTED [facility] Last Admin: 12/29/18 06:56 Dose: 125 mls/hr Piperacillin Sod/Tazobactam (Sod 3.375 gm/ Sodium Chloride) 100 mls @ 200 mls/ hr IV Q6H [facility] Last Infusion: 12/29/18 06:34 Dose: Infused Insulin Glargine (Lantus) 50 unit SUBCUT 0900,2100 [facility] Last Admin: 12/29/18 09:06 Dose: 50 units Insulin Human Lispro (Humalog) 0 unit SUBCUT QIDACANDBED [facility]; Protocol Last Admin: 12/29/18 09:06 Dose: 4 units Simvastatin (Zocor) 10 mg PO DAILY [facility] Last Admin: 12/29/18 09:07 Dose: 10 mg Sodium Chloride (Saline Flush) 10 ml FLUSH ASDIRECTED PRN PRN Reason: Keep Vein Open Tamsulosin HCl (Flomax) 0.4 mg PO DAILY [facility] Discontinued Medications Sodium Chloride (Normal Saline) 1,000 mls @ 999 mls/hr IV .BOLUS ONE Stop: 12/28/18 04:51 Last Admin: 12/28/18 06:15 Dose: 999 mls/hr Sodium Chloride (Normal Saline) 1,000 mls @ 999 mls/hr IV .BOLUS ONE Stop: 12/28/18 07:23 Last Admin: 12/28/18 06:30 Dose: 999 mls/hr Piperacillin Sod/Tazobactam (Sod 3.375 gm/ Sodium Chloride) 100 mls @ 200 mls/ hr IV ONETIME ONE Stop: 12/28/18 07:08 Last Infusion: 12/28/18 07:33 Dose: Infused Vancomycin HCl 1.75 gm/ Sodium (Chloride) 500 mls @ 334 mls/hr IV ONETIME ONE Stop: 12/28/18 08:08 Last Admin: 12/28/18 07:44 Dose: 334 mls/hr Sodium Chloride (Normal Saline) 1,000 mls @ 250 mls/hr IV .BOLUS ONE Stop: 12/28/18 10:48 Last Infusion: 12/28/18 13:58 Dose: Infused Insulin Glargine (Lantus) 50 unit SUBCUT BIDAC [facility] Last Admin: 12/28/18 17:47 Dose: 50 units Insulin Human Lispro (Humalog) 10 unit SUBCUT ONETIME ONE Stop: 12/28/18 11:53 Last Admin: 12/28/18 12:37 Dose: 10 units Insulin NPH Beef/Pork (Humulin 70-30) 30 unit SQ ONETIME ONE Stop: 12/28/18 11:52 Last Admin: 12/28/18 12:39 Dose: 30 unit Oxycodone HCl (Oxycodone) 5 mg PO ONETIME ONE Stop: 12/29/18 03:42 Last Admin: 12/29/18 04:08 Dose: 5 mg - Exam General: Reports: Alert, Oriented HEENT: Reports: Pupils Equal, Pupils Reactive Lungs: Reports: Clear to Auscultation, Normal Respiratory Effort Cardiovascular: Reports: Regular Rate, Regular Rhythm, No Murmurs GI/Abdominal Exam: Normal Bowel Sounds, Soft, Non-Tender, No Organomegaly Extremities: Normal Inspection, Normal Range of Motion, Non-Tender, No Pedal Edema
--- NOTE | 2018-12-29 19:02 | PCM.PRNOTE ---
- Free Text/Narrative Note: Removed PICC line with sterile technique Patient was instructed to breath in, then out, then to hold while line was pulled out Dressing was placed on puncture site Patient tolerated procedure well. No blood loss Nicholas Dinh MD Hospitalist
== END 2018-12-29 14:07 | disposition home or self-care (01) | DRG 871 ==
LOC: DL.ED 03:47 → DL.MS 06:39
PROVIDERS: ADMIT Hospitalist; ATTEND Hospitalist
PROC: 02HV33Z Insertion of Infusion Device into Superior Vena Cava, Percutaneous Approach (ICD-10-PCS; principal; 2018-12-28)
DX: A41.9 Sepsis, unspecified organism (principal); R65.21 Severe sepsis with septic shock; N17.9 Acute kidney failure, unspecified; N13.30 Unspecified hydronephrosis; E86.0 Dehydration; I95.1 Orthostatic hypotension; E11.9 Type 2 diabetes mellitus without complications; E78.5 Hyperlipidemia, unspecified; E66.9 Obesity, unspecified; E78.00 Pure hypercholesterolemia, unspecified; I10 Essential (primary) hypertension; G51.0 Bell's palsy; D72.829 Elevated white blood cell count, unspecified; N40.0 Benign prostatic hyperplasia without lower urinary tract symptoms; Z79.82 Long term (current) use of aspirin; Z79.4 Long term (current) use of insulin; Z79.899 Other long term (current) drug therapy; Z98.49 Cataract extraction status, unspecified eye; Z68.31 Body mass index [BMI] 31.0-31.9, adult
CPT/HCPCS: 36415; 51701; 71045; 71250; 74176; 80048; 80053; 80305-QW; 81001; 82009; 82962; 83605; 83735; 84100; 84484; 85025; 85027; 87040; 87077; 87186; 93005; 96365; 99285-25; A9270-GY; J1644; J1815; J1815-GY; J2543; J3370; J7030; J7040; J7050